=== PATIENT | male | born 1985 | race African-American/Black ===

== ENCOUNTER 2020-02-28 16:36 | Emergency (ER) | payer MEDICAID ==
[~2020-02-28] VITALS: Ht 167.6 cm; Wt 102.0 kg
[2020-02-28 17:38] VITALS: BP 137/60
[2020-02-28] MEDS ORDERED: DOXY100T PO (18:27)
--- NOTE | 2020-02-28 18:27 | PHYS DOC ---
Past Medical History Past Medical History: No Pertinent History, Other Additional Past Medical Histor: HEART MURMER Past Surgical History: Other Additional Past Surgical Histo: KNEE SCREWS, ANKLE FX Smoking Status: Current Every Day Smoker Alcohol Use: Rarely General Adult EDM: Chief Complaint: SKIN PROBLEM HPI: HPI: Patient is a 34 year old male who presents to the ED today to be evaluated for chronic folliculitis. Patient states he is supposed to be on doxycycline daily but moved from [place] does not have a PCP locally. Patient denies any fever. Review of Systems: Review of Systems: Constitutional: Denies fever or chills. [] Musculoskeletal: Denies back pain or joint pain. [] Integument: Reports folliculitis. Neurologic: Denies headache, focal weakness or sensory changes. [] Heart Score: Risk Factors: Risk Factors: DM, Current or recent (<one month) smoker, HTN, HLP, family history of CAD, obesity. Risk Scores: Score 0 - 3: 2.5% MACE over next 6 weeks - Discharge Home Score 4 - 6: 20.3% MACE over next 6 weeks - Admit for Clinical Observation Score 7 - 10: 72.7% MACE over next 6 weeks - Early Invasive Strategies Allergies: Allergies: Allergies Coded Allergies Type Severity Reaction Last Updated Verified No Known Drug Allergies 02/28/20 No Physical Exam: PE: Constitutional: Well developed, well nourished, no acute distress, non-toxic appearance. [] Skin: Warm, dry, jones with mild amount of folliculitis lesions. No drainage. Back: No tenderness, no CVA tenderness. [] Extremities: No tenderness, no cyanosis, no clubbing, ROM intact, no edema. [] Neurologic: Alert and oriented X 3, normal motor function, normal sensory function, no focal deficits noted. [] Psychologic: Affect normal, judgement normal, mood normal. [] Current Patient Data: Vital Signs: Vital Signs Date Time Temp Pulse Resp B/P (MAP) Pulse Ox O2 Delivery O2 Flow Rate FiO2 02/28/20 17:38 98.8 18 137/60 (85) 99 Room Air 98.8 EKG: EKG: [] Radiology/Procedures: Radiology/Procedures: [] Course & Med Decision Making: Course & Med Decision Making Pertinent Labs and Imaging studies reviewed. (See chart for details) This is a 34-year-old male patient presenting to the ED today with a flareup of folliculitis. He reports he is supposed to be on doxycycline every day but moved from [place] and has no PCP locally so he has not taken this medicine for a while. Patient was discharged on doxycycline. Tetanus up-to-date. Provided return precautions. Isaura Disclaimer: Isaura Disclaimer: This electronic medical record was generated, in whole or in part, using a voice recognition dictation system. Departure Departure Impression: Primary Impression: Folliculitis barbae Disposition: HOME, SELF-CARE Condition: STABLE Patient Instructions: Folliculitis-SportsMed Additional Instructions: You were evaluated for folliculitis. Take the prescribed medication as ordered. Follow-up with your doctor from the list provided. Scripts Doxycycline Hyclate (DOXYCYCLINE HYCLATE) 100 Mg Tablet 1 TAB PO BID, #90 TAB 1 Refill Prov: NEHA FRANCES APRN 02/28/20 Justicifation of Admission Dx: Justifications for Admission: Justification of Admission Dx: N/A NEHA FRANCES APRN Feb 28, 2020 18:27
== END 2020-02-28 18:40 | disposition home or self-care (01) ==
LOC: ER 16:36
DX: L73.8 Other specified follicular disorders (principal); F17.200 Nicotine dependence, unspecified, uncomplicated; Z98.890 Other specified postprocedural states
CPT/HCPCS: 99283

== ENCOUNTER 2020-07-06 08:23 | Emergency (ER) | payer MEDICAID ==
[~2020-07-06] VITALS: Ht 168.9 cm; Wt 95.4 kg
[~2020-07-06 08:23] MED LIST: DOXY100T PO
[2020-07-06 08:31] VITALS: BP 124/44
[2020-07-06] MEDS ORDERED: MUPI22OI2 TP (09:33)
[2020-07-06] MEDS ORDERED: PRED50TA PO (09:33)
--- NOTE | 2020-07-06 09:33 | ED.ADGEN ---
Past Medical History Past Medical History: Other Additional Past Medical Histor: HEART MURMER Past Surgical History: Other Additional Past Surgical Histo: KNEE SCREWS, ANKLE FX Smoking Status: Current Every Day Smoker Additional Information: 1-2 cigars daily Alcohol Use: None General Adult EDM: Chief Complaint: SKIN RASH/ABSCESS HPI: HPI: Patient is a 34-year-old male who presents to the emergency room complaining of 2 different rashes. He was diagnosed with folliculitis and was started on doxycycline for a couple of lesions in his groin. He states that doxycycline is not helping. The areas have not gotten bigger but have not improved. He also states that he got out of the shower this morning and noticed this diffuse plaque-like rash on his arms and back. He states it is mildly itchy but does not hurt. He is never had anything like this similarly. He denies any other symptoms. Review of Systems: Review of Systems: Complete ROS is negative unless otherwise documented in HPI Allergies: Allergies: Allergies Coded Allergies Type Severity Reaction Last Updated Verified No Known Drug Allergies 07/06/20 No Physical Exam: PE: General: Awake, alert, NAD. Well Nourished, well hydrated. Cooperative HEENT: Atraumatic, EOMI, PERRL, airway patent, moist oral mucosa Neck: Supple, trachea midline Respiratory: CTA bilaterally, normal effort, no wheezing/crackles CV: RRR, no murmur, cap refill <2 GI: Soft, nondistended, nontender, no masses MSK: No obvious deformities Skin: Warm, dry, intact. L lower abd: two 1x2cm raised, erythematous areas c/w folliculitis. Back/bilateral arms: multiple raised patches with large patch on upper back Neuro: A&O x3, speech NL, sensory and motor grossly intact, no focal deficits Psych: Normal affect, normal mood, not suicidal or homicidal Current Patient Data: Vital Signs: Vital Signs Date Time Temp Pulse Resp B/P (MAP) Pulse Ox O2 Delivery O2 Flow Rate FiO2 07/06/20 08:31 98.5 78 16 124/44 (70) 98 Room Air 98.5 EKG: EKG: [] Heart Score: Risk Factors: Risk Factors: DM, Current or recent (<one month) smoker, HTN, HLP, family history of CAD, obesity. Risk Scores: Score 0 - 3: 2.5% MACE over next 6 weeks - Discharge Home Score 4 - 6: 20.3% MACE over next 6 weeks - Admit for Clinical Observation Score 7 - 10: 72.7% MACE over next 6 weeks - Early Invasive Strategies Radiology/Procedures: Radiology/Procedures: [] Course & Med Decision Making: Course & Med Decision Making Pertinent Labs and Imaging studies reviewed. (See chart for details) Patient is a 34-year-old male who presents to the emergency room with 2 separate skin complaints. Patient has folliculitis which has not resolved. We will place him on Bactroban to help clear the lesions up while he is on his oral ant ibiotics. Patient also has a rash consistent with pityriasis rosacea. I have discussed the rash and the self-limiting nature of it with the patient. We have discussed some treatment. He will follow up with his primary care doctor in the next few weeks if it is not resolved. Patient's test results and vitals while in the ED were fully reviewed and discussed with the patient. Patient is stable and at this time does not need admission to the hospital. We have discussed strict return precautions and the importance of following up with their Primary Care Physician. Patient stated understanding and was given an opportunity to ask any questions. Patient is in agreement with plan. Isaura Disclaimer: Isaura Disclaimer: This electronic medical record was generated, in whole or in part, using a voice recognition dictation system. Departure Departure Impression: Primary Impression: Pityriasis Additional Impression: Folliculitis barbae Disposition: 01 DC HOME SELF CARE/HOMELESS Condition: STABLE Referrals: NO PCP (PCP) Patient Instructions: Folliculitis, Pityriasis Rosea Scripts Prednisone (PREDNISONE) 50 Mg Tablet 1 TAB PO DAILY, #5 TAB Prov: ZEINA PRINGLE MD 07/06/20 Mupirocin (MUPIROCIN OINTMENT) 22 Gm Oint...g. 1 ROCKY TP TID for WOUND CARE, #1 TUBE Prov: ZEINA PRINGLE MD 07/06/20 Problem Qualifiers ZEINA PRINGLE MD Jul 06, 2020 09:33
== END 2020-07-06 09:56 | disposition home or self-care (01) ==
LOC: ER 08:23
DX: L21.0 Seborrhea capitis (principal); L73.8 Other specified follicular disorders; F17.210 Nicotine dependence, cigarettes, uncomplicated
CPT/HCPCS: 99283

== ENCOUNTER 2020-08-05 13:48 | Emergency (ER) | payer MEDICAID ==
[~2020-08-05] VITALS: Ht 167.6 cm; Wt 95.4 kg
[~2020-08-05 13:48] MED LIST changes: +MUPI22OI2 TP; +PRED50TA PO
[2020-08-05 14:00] VITALS: BP 148/64
[2020-08-05] MEDS ORDERED: CEPH500C PO (14:58)
[2020-08-05] MEDS ORDERED: MUPI22OI2 TP (14:58)
[2020-08-05] MEDS ORDERED: METH4TAB2 PO (14:58)
--- NOTE | 2020-08-05 14:59 | PHYS DOC ---
Past Medical History Past Medical History: Other Additional Past Medical Histor: HEART MURMER Past Surgical History: Other Additional Past Surgical Histo: KNEE SCREWS, ANKLE FX Smoking Status: Current Every Day Smoker Alcohol Use: None General Adult EDM: Chief Complaint: SKIN PROBLEM HPI: HPI: Patient is a 34 year old male who presents with 3 years of chronic folliculitis type rash and areas of hair growth. He states that it comes and goes and will be reddened papule and then at times has purulent fluid coming out of it. He states that the other day he pulled a hard cleared like worm out of the area. He states the doxycycline does not work. He states antibiotic ointment does not work. He states it itches at times. He states sometimes it gets worse when he gets out of the shoulder. He denies any pain but states that it itches. 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 Review of Systems: Review of Systems: Constitutional: Denies fever or chills. [] Eyes: Denies change in visual acuity. [] HENT: Denies nasal congestion or sore throat. [] Respiratory: Denies cough or shortness of breath. [] Cardiovascular: Denies chest pain or edema. [] GI: Denies abdominal pain, nausea, vomiting, bloody stools or diarrhea. [] : Denies dysuria. [] Musculoskeletal: Denies back pain or joint pain. [] Integument: +3 years of papule rash. [] Neurologic: Denies headache, focal weakness or sensory changes. [] Endocrine: Denies polyuria or polydipsia. [] Lymphatic: Denies swollen glands. [] Psychiatric: Denies depression or anxiety. [] Heart Score: Risk Factors: Risk Factors: DM, Current or recent (<one month) smoker, HTN, HLP, family history of CAD, obesity. Risk Scores: Score 0 - 3: 2.5% MACE over next 6 weeks - Discharge Home Score 4 - 6: 20.3% MACE over next 6 weeks - Admit for Clinical Observation Score 7 - 10: 72.7% MACE over next 6 weeks - Early Invasive Strategies Allergies: Allergies: Allergies Coded Allergies Type Severity Reaction Last Updated Verified No Known Drug Allergies 07/06/20 No Physical Exam: PE: Constitutional: Well developed, well nourished, no acute distress, non-toxic appearance. [] HENT: Normocephalic, atraumatic, bilateral external ears normal, oropharynx moist, no oral exudates, nose normal. [] Eyes: PERRLA, EOMI, conjunctiva normal, no discharge. [] Neck: Normal range of motion, no tenderness, supple, no stridor. [] Cardiovascular:Heart rate regular rhythm, no murmur [] Lungs & Thorax: Bilateral breath sounds clear to auscultation [] Abdomen: Bowel sounds normal, soft, no tenderness, no masses, no pulsatile masses. [] Skin: Warm, dry, no erythema, Papule rash that is red and then fades in areas of hair growth. [] Back: No tenderness, no CVA tenderness. [] Extremities: No tenderness, no cyanosis, no clubbing, ROM intact, no edema. [] Neurologic: Alert and oriented X 3, normal motor function, normal sensory function, no focal deficits noted. [] Psychologic: Affect normal, judgement normal, mood normal. [] Current Patient Data: Vital Signs: Vital Signs Date Time Temp Pulse Resp B/P (MAP) Pulse Ox O2 Delivery O2 Flow Rate FiO2 08/05/20 14:00 97.3 16 148/64 (92) 99 Room Air 97.3 EKG: EKG: [] Radiology/Procedures: Radiology/Procedures: [] Course & Med Decision Making: Course & Med Decision Making Pertinent Labs and Imaging studies reviewed. (See chart for details) See HPI. Alert and oriented 4. Speaks in full complete sentences. Skin otherwise pink warm and dry. There is not seem to be any infection. No areas of papules and look as if they are red and pimple-like. Than others are faded brown skin in color. Patient has dark skin. No fever. Patient will be placed on Keflex antibiotic and clindamycin ointment. Patient states that the mupirocin topical with did not work. Patient is told that he needs to go to a dedicated driver. [] Dragon Disclaimer: Isaura Disclaimer: This electronic medical record was generated, in whole or in part, using a voice recognition dictation system. Departure Departure Impression: Primary Impression: Folliculitis barbae Disposition: 01 DC HOME SELF CARE/HOMELESS Condition: STABLE Referrals: NO PCP (PCP) Patient Instructions: Folliculitis Additional Instructions: Follow-up with a dedicated driver of your choice as soon as possible. Use medications as prescribed. Scripts Mupirocin (MUPIROCIN OINTMENT) 22 Gm Oint...g. 1 ROCKY TP TID for WOUND CARE, #1 EACH Prov: OLWELL DE LA TORRE APRN 08/05/20 Cephalexin (CEPHALEXIN) 500 Mg Capsule 1 CAP PO TID, #30 CAP Prov: LOWELL DE LA TORRE APRN 08/05/20 Methylprednisolone (MEDROL) 4 Mg Tab.ds.pk 1 PKG PO UD, #1 PKG Prov: LOWELL DE LA TORRE APRN 08/05/20 LOWELL DE LA TORRE APRN Aug 05, 2020 14:59
== END 2020-08-05 15:00 | disposition home or self-care (01) ==
LOC: ER 13:48
DX: L73.8 Other specified follicular disorders (principal); F17.200 Nicotine dependence, unspecified, uncomplicated
CPT/HCPCS: 99283

== ENCOUNTER 2021-02-04 23:45 | Emergency (ER) | payer MEDICAID ==
[~2021-02-04 23:45] MED LIST changes: +CEPH500C PO; +METH4TAB2 PO
== END 2021-02-05 00:41 | disposition left against medical advice (07) ==
LOC: ER 23:45
DX: L02.01 Cutaneous abscess of face (principal); Z53.21 Procedure and treatment not carried out due to patient leaving prior to being seen by health care provider